=== PATIENT | male | born 1950 | race Caucasian/White ===

== ENCOUNTER → 2018-04-14 | Day surgery (SDC) | payer OTHER ==
[~2018-04-14] VITALS: Ht 180.3 cm; Wt 103.4 kg
[~2018-04-14] MED LIST: ACET500T68 PO; AMOX1TAB11 PO; ASPI-630 PO; ATORVASTATIN CA80 MG PO; BUPIVAC MPF-EPI 0.5%-1:200000 30 ML VIAL. ONE; BUPR150T6 PO; CHLORHEXIDINE 0.12% 15 ML MOUTHWASH. SWSP ONE; CYAN10005 PO; DEXAMETHASONE SOD PHOS 20 MG/5 ML VIAL. ONE; FURO40TA4 PO; GABA-586 PO; GELATIN SPONGE SIZE 100. ONE; HYDROmorphone 2 MG/ML VIAL IV PRN; IV RINGERS,LACTATED 1000ML 1,000 ML IV SCH; L.AC1CAP6 PO; LEVO150T5 PO; LIDOCAINE 1% PF 2 ML VIAL. ID PRN; LISI10TA2 PO; METF10007 PO; METO10TA81 PO; MIRT15TA3 PO; MORPHINE SULFATE 2 MG/ML VIAL. IV PRN; NITR0.4T22 SL; ONDA8TAB12 PO; ONDANSETRON PF 4 MG/2 ML VIAL. IV PRN; ONDANSETRON PF 4 MG/2 ML VIAL. ONE; PROCHLORPERAZINE 10 MG/2 ML VIAL. IV PRN; PROPOFOL 20 ML IV ONE; RANI150C PO; RIVA20TA2 PO; ROCURONIUM 50 MG/5 ML VIAL. ONE; SERT50TA PO; SEVOFLURANE 31 TO 60 MINUTES. IH ONE; fentaNYL PF VIAL 100 MCG/2 ML VIAL IV PRN; fentaNYL PF VIAL 100 MCG/2 ML VIAL ONE
--- NOTE | 2018-04-14 14:48 | PDOC4 ---
OPERATIVE NOTE Date: Date: Apr 14, 2018 Pre-Op Diagnosis: Laryngeal SCC S/P H&N radiation Non restorable teeth 5,6,7,8,9,10,11,12,21,22,23,24,25,26,27,28 Post-Op Diagnosis: Laryngeal SCC S/P H&N radiation Non restorable teeth 5,6,7,8,9,10,11,12,21,22,23,24,25,26,27,28 Procedure Performed: Surgical removal of: Non restorable teeth 5,6,7,8,9,10,11,12,21,22,23,24,25,26,27,28 Alveoloplasty UR, UL, LL, LR Surgeon: linh Anesthesia Type: DD Blood Loss: 10ml Specimans Obtained: none teeth disposed of in OR Findings: see dictation Complications: none Operative Note: Surgical removal of: Non restorable teeth 5,6,7,8,9,10,11,12,21,22,23,24,25,26,27,28 Alveoloplasty UR, UL, LL, LR HAKEEM FLORES DMD Apr 14, 2018 14:48
[2018-04-14 16:10] VITALS: BP 146/61
--- NOTE | 2018-04-14 18:39 | OP ---
DATE OF SURGERY: 04/14/2018 OPERATING SERVICE: Oral Maxillofacial Surgery. ATTENDING PHYSICIAN: Daniel Flores DMD. PREOPERATIVE DIAGNOSES: Recurrent laryngeal squamous cell carcinoma, tracheostomy and caries nonrestorable dentition and hyperfractionated head and neck radiation. POSTOPERATIVE DIAGNOSES: Recurrent laryngeal squamous cell carcinoma, tracheostomy and caries nonrestorable dentition and hyperfractionated head and neck radiation. PROCEDURE PERFORMED: Extraction of all remaining carious nonrestorable teeth 5, 6, 7, 8, 9, 10, 11, 12, 20, 21, 22, 23, 24, 25, 26, 27, 28 and alveoloplasty right lower, left lower, upper right, upper left. BRIEF HISTORY: The patient has been irradiated and had considerable pain. He had planned to have hyperbaric oxygen administered. Unfortunately, he was found to have recurrent cancer during this timeframe. The HBO was discontinued and the patient then had undergone radical head and neck surgery with complete laryngectomy and was undergoing radiation treatment for the tumor bed. He has had constant pain from his teeth as he has stated for significant amount of time. The radiation oncologist elected to postpone extraction of teeth until his radiation had concluded. The surgery was scheduled for this date, permit was obtained. DRAINS PLACED: None. COMPLICATIONS: None noted at the time of surgery. SPECIMEN SENT: None. Teeth were disposed off in the OR. ESTIMATED BLOOD LOSS: Approximately less than 10 mL. OPERATIVE DESCRIPTION: After the history and physical was updated in the preoperative holding area, the patient was transported by the Anesthesia Service to the operating suite, placed in supine position. General anesthesia was induced. A tube was secured into the tracheostomy without complication. General anesthesia was continued to be administered. The patient was comfortable throughout the procedure. Tube was taped at midline and then off to the left. A surgical timeout was performed. All parties were in agreement. Surgery began with placement of a moistened throat pack of the oropharynx. Local anesthesia in the form of 20 mL of 0.5% Marcaine, 1:200,000 epinephrine were administered into the proposed surgical areas. A #15 blade was employed to create a full thickness mucoperiosteal flap, which was reflected buccally with a periosteal elevator. Teeth numbers 5, 6, 7, 8, 9, 10, 11, 12, 20, 21, 22, 23, 24, 25, 26, 27, 28 were luxated, elevated and extracted without complication with elevators, forceps and rongeurs. All bony undercuts were removed with the rongeurs and smoothed with a bone file and lavaged with copious normal sterile saline irrigation. Each extraction site was packed with Gelfoam and the local flaps were oversewn with 3-0 chromic gut sutures without complication. The patient was found to be hemostatic at the culmination of the procedure. Oral cavity was then lavaged and suctioned. Moistened throat pack was removed. The patient was returned to the care of anesthesia where he was awakened and the tracheostomy intubation was removed. The patient was able to have his stoma all guarded and was able to ventilate without complication. He was transported to PACU in stable condition. DANIEL FLORES DMD DR: Elvin JOB#: [id number] / [id number]
== END | disposition home or self-care (01) ==
LOC: SURG 09:50
PROVIDERS: ATTEND Dentist Oral and Maxillofacial Surgery
DX: K02.9 Dental caries, unspecified (principal); C32.9 Malignant neoplasm of larynx, unspecified; I25.10 Atherosclerotic heart disease of native coronary artery without angina pectoris; J44.9 Chronic obstructive pulmonary disease, unspecified; Z86.718 Personal history of other venous thrombosis and embolism; G47.33 Obstructive sleep apnea (adult) (pediatric); E11.9 Type 2 diabetes mellitus without complications; F41.9 Anxiety disorder, unspecified; F32.9 Major depressive disorder, single episode, unspecified; K21.9 Gastro-esophageal reflux disease without esophagitis; Z79.84 Long term (current) use of oral hypoglycemic drugs; Z79.899 Other long term (current) drug therapy; F17.210 Nicotine dependence, cigarettes, uncomplicated; Z93.0 Tracheostomy status
CPT/HCPCS: 41874; 41899; 82962; J0690; J1100; J2405; J2704; J3490; J3010